=== PATIENT | male | born 1960 | race American Indian/Alaskan Native ===

== ENCOUNTER 2020-08-05 15:22 | Emergency (ER) | payer OTHER ==
[2020-08-05 15:37] VITALS: BP 117/70
[2020-08-05] MEDS ORDERED: ACETAMINOPHEN 325 MG TAB PO ONE (15:53)
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
== END 2020-08-05 16:59 | disposition home or self-care (01) ==
LOC: ED 15:22
DX: T14.8XXA Other injury of unspecified body region, initial encounter (principal); Z88.8 Allergy status to other drugs, medicaments and biological substances; Z98.890 Other specified postprocedural states; V49.49XA Driver injured in collision with other motor vehicles in traffic accident, initial encounter; Y92.410 Unspecified street and highway as the place of occurrence of the external cause; Y93.89 Activity, other specified; Y99.8 Other external cause status